=== PATIENT | male | born 1965 | race American Indian/Alaskan Native ===

== ENCOUNTER 2021-09-14 19:04 | Emergency (ER) | payer BC, OTHER ==
[2021-09-14] MEDS ORDERED: Sodium Chloride 0.9% 10 ML Syringe FLUSH PRN (19:13)
[2021-09-14] MEDS ORDERED: Sodium Chloride 0.9% 2.5 ML Syringe FLUSH PRN (19:13)
[2021-09-14] MEDS ORDERED: Lactated Ringers 1,000 ML IV ONE (19:14)
[2021-09-14] MEDS ORDERED: Folic Acid 1 MG Tab PO ONE (19:14)
[2021-09-14] MEDS ORDERED: Thiamine 100 MG Tab PO ONE (19:14)
[2021-09-14 19:57] LABS: CARBON DIOXIDE,CO2 24.5 mmol/L (21.0-32.0); POTASSIUM,K 3.1 mmol/L (3.5-5.1)
[2021-09-14 20:12] LABS: CORONAVIRUS COVID-19 NAA NEGATIVE (NEGATIVE); INFLUENZA A NAA NEGATIVE (NEGATIVE); INFLUENZA B NAA NEGATIVE (NEGATIVE)
[2021-09-14] MEDS ORDERED: Iopamidol 755 MG/ML 500 ML Multipack Bottle IVPUSH ONE (21:10)
[2021-09-14] MEDS ORDERED: Ketorolac 30 MG/ML SDV IVPUSH ONE (21:46)
== END 2021-09-14 23:37 | disposition home or self-care (01) ==
LOC: MW.ED 19:04
DX: R07.89 Other chest pain (principal); F10.10 Alcohol abuse, uncomplicated; E87.6 Hypokalemia; Z20.822 Contact with and (suspected) exposure to COVID-19
CPT/HCPCS: 0240U; 36415; 71045; 71275; 80053; 80307; 83690; 83735; 84484; 85025; 85379; 93005; 96361; 96374; 99285; A9270; J1885; J3490; J7120; Q9967; 93010; 99284

== ENCOUNTER 2021-09-23 13:45 | Emergency (ER) | payer BC, OTHER ==
[2021-09-23 15:59] LABS: ACETAMINOPHEN <2.0 ug/mL; BLOOD UREA NITROGEN,BUN 3 mg/dL (7.0-18.0); CARBON DIOXIDE,CO2 23.3 mmol/L (21.0-32.0); CHLORIDE,CL 101 mmol/L (98-107); GLUCOSE RANDOM 125 mg/dL (74-106); POTASSIUM,K 3.5 mmol/L (3.5-5.1); SODIUM,NA 136 mmol/L (136-148)
[2021-09-23 16:00] LABS: ESTIMATED GFR 110 mL/min (>60)
== END 2021-09-23 16:04 | disposition left against medical advice (07) ==
LOC: MW.ED 13:45
DX: F10.10 Alcohol abuse, uncomplicated (principal); I10 Essential (primary) hypertension; Z79.899 Other long term (current) drug therapy; Z20.822 Contact with and (suspected) exposure to COVID-19
CPT/HCPCS: 36415; 80053; 80143; 80179; 80305-QW; 80307; 81001; 83735; 84443; 85025; 93005; 93010; 99282; 99284; U0002

== ENCOUNTER 2023-01-26 10:02 | Emergency (ER) | payer OTHER ==
[2023-01-26] MEDS ORDERED: Dextrose 10% in Water 500 ML ONE (10:05)
[2023-01-26] MEDS ORDERED: Sodium Chloride 0.9% 1,000 ML IV ONE ×2 (10:08→10:28)
[2023-01-26] MEDS ORDERED: Sodium Chloride 0.9% 2.5 ML Syringe FLUSH PRN (10:08)
[2023-01-26] MEDS ORDERED: Ondansetron 4 MG/2 ML SDV IVPUSH ONE ×2 (10:08→12:46)
[2023-01-26] MEDS ORDERED: 50% Dextrose in Water 50 ML Syringe IVPUSH ONE (10:08)
[2023-01-26] MEDS ORDERED: Sodium Chloride 0.9% 10 ML Syringe FLUSH PRN (10:08)
[2023-01-26] MEDS ORDERED: Pantoprazole 80 MG in Sodium Chloride 0.9% 10 ML IVPUSH ONE (10:13)
[2023-01-26] MEDS ORDERED: cefTRIAXone 2 GM in Sodium Chloride 0.9% 50 ML IV ONE (10:14)
[2023-01-26] MEDS ORDERED: Octreotide 500 MCG in Sodium Chloride 0.9% 495 ML IV SCH (10:15)
[2023-01-26] MEDS ORDERED: Dextrose 10% in Water 500 ML IV SCH (10:15)
[2023-01-26 10:20] LABS: BASE EXCESS VENOUS -10.8 (-2.0-3.0); PH,VENOUS 7.3 (7.31-7.41)
[2023-01-26 10:24] LABS: BASOPHILS ABSOLUTE AUTO 0.02 K/uL (0.00-0.20); BASOPHILS PERCENT AUTO 0.2 % (0.0-1.0); EOSINOPHILS ABSOLUTE AUTO 0.01 K/uL (0.00-0.45); EOSINOPHILS PERCENT AUTO 0.1 % (0.0-6.0); HEMATOCRIT 25.6 % (42.0-52.0); HEMOGLOBIN 8.9 g/dL (14.0-18.0); IMMATURE GRAN ABSOLUTE AUTO 0.24 K/uL (0.00-0.05); IMMATURE GRAN PERCENT AUTO 2.1 % (0.0-0.4); LYMPHOCYTES ABSOLUTE AUTO 0.51 K/uL (1.00-4.80); LYMPHOCYTES PERCENT AUTO 4.4 % (24.0-44.0); MEAN CORPUSCULAR HEMOGLOBIN 35.6 pg (28.0-32.0); MEAN CORPUSCULAR HGB CONC 34.8 g/dL (32.0-36.0); MEAN CORPUSCULAR VOLUME 102.4 fL (83.0-99.0); MEAN PLATELET VOLUME 9.8 fL (9.4-12.4); MONOCYTES ABSOLUTE AUTO 0.61 K/uL (0.00-0.80); MONOCYTES PERCENT AUTO 5.3 % (0.0-8.0); NEUTROPHILS ABSOLUTE AUTO 10.22 K/uL (1.80-7.70); NEUTROPHILS PERCENT AUTO 87.9 % (41.0-71.0); NRBC ABSOLUTE 0.15 K/uL (0.00-0.02); NRBC PERCENT 1.3 /100WBC (0.0-0.2); PLATELET COUNT,PLT 144 K/uL (150-400); WHITE BLOOD CELL COUNT,WBC 11.61 K/uL (3.9-11.3)
[2023-01-26] MEDS ORDERED: Sodium Chloride 0.9% 500 ML IV SCH (10:30)
[2023-01-26 10:40] LABS: INR 1.61 (0.86-1.11); PTT,PARTIAL THROMBOPLSTIN TIME 43.8 SEC (23.9-30.7)
[2023-01-26 10:46] LABS: A/G RATIO 0.4 (0.9-1.6); ACETAMINOPHEN <2.0 ug/mL; ALANINE AMINOTRANSFERASE,ALT 38 IU/L (14-63); ALBUMIN 1.6 g/dL (3.4-5.0); ALKALINE PHOSPHATASE 348 U/L (46-116); ASPARTATE AMNIOTRANSFERASE,AST 189 IU/L (15-37); BILIRUBIN TOTAL 13.3 mg/dL (0.2-1.0); BLOOD UREA NITROGEN,BUN 76 mg/dL (7.0-18.0); CALCIUM 8.5 mg/dL (8.5-10.1); CARBON DIOXIDE,CO2 14.4 mmol/L (21.0-32.0); CHLORIDE,CL 90 mmol/L (98-107); CREATININE 17.5 mg/dL (0.8-1.3); EST CRCL DRUG DOSING (CG) 5.17 mL/min; ESTIMATED GFR 3 mL/min (>60); ETHANOL BLOOD MEDICAL 72 mg/dL; GLUCOSE RANDOM 68 mg/dL (74-106); PHOSPHORUS 6.8 mg/dL (2.6-4.7); POTASSIUM,K 5.4 mmol/L (3.5-5.1); SODIUM,NA 129 mmol/L (136-148)
[2023-01-26] MEDS ORDERED: Sodium Bicarbonate 150 MEQ in Dextrose 5% in Water 1,000 ML IV ONE ×4 (10:56→11:15)
[2023-01-26] MEDS ORDERED: metroNIDAZOLE/Normal Saline 500 MG in Premix Bag 1 BAG IV STA (10:57)
[2023-01-26] MEDS ORDERED: Norepinephrine Bit/D5W Premix 250 ML IV SCH (11:15)
[2023-01-26] MEDS ORDERED: Lidocaine 1% 5 ML VIAL INJECT ONE (11:32)
[2023-01-26] MEDS ORDERED: Lidocaine 1% with EPINEPHrine 1:100,000 20 ML MDV INJECT ONE (11:32)
[2023-01-26] MEDS ORDERED: Norepinephrine Bit/D5W Premix 250 ML ONE (11:36)
[2023-01-26 12:17] LABS: BASE EXCESS VENOUS -11.3 (-2.0-3.0); HEMATOCRIT 23.5 % (42.0-52.0); HEMOGLOBIN 8.3 g/dL (14.0-18.0); PH,VENOUS 7.3 (7.31-7.41)
[2023-01-26 12:43] LABS: LACTIC ACID 4.5 mmol/L (0.4-2.0)
[2023-01-26 13:19] LABS: APPEARANCE,URINE CLOUDY; COLOR,URINE BROWN; GLUCOSE,URINE NEGATIVE (NEGATIVE); KETONES,URINE 15 mg/dL (NEGATIVE); LEUKOCYTE ESTERASE,URINE TRACE (NEGATIVE); NITRITE,URINE NEGATIVE (NEGATIVE); OCCULT BLOOD,URINE LARGE (NEGATIVE); PH,URINE 5.5 (5.0-8.0); PROTEIN,URINE 100 mg/dL (NEGATIVE)
[2023-01-26 13:29] LABS: AMPHETAMINES SCREEN, URINE NEGATIVE (CUTOFF=500); BARBITURATE SCREEN,URINE NEGATIVE (CUTOFF=200); BENZODIAZEPINES SCREEN,URINE NEGATIVE (CUTOFF=150); BUPRENORPHINE SCREEN,URINE NEGATIVE (CUTOFF=10); METHADONE SCREEN, URINE NEGATIVE (CUTOFF=200); METHAMPHETAMINES SCREEN, URINE NEGATIVE (CUTOFF=500); OXYCODONE SCREEN,URINE NEGATIVE (CUT0FF=100); PCP SCREEN,URINE NEGATIVE (CUTOFF=25); PROPOXYPHENE SCREEN,URINE NEGATIVE (CUTOFF=300); THC SCREEN,URINE 20 NG/ML NEGATIVE (CUTOFF=50)
[2023-01-26 13:39] LABS: BILIRUBIN,URINE LARGE (NEGATIVE)
[2023-01-26 13:40] LABS: AMORPHOUS SEDIMENT,URINE MANY (NEGATIVE); BACTERIA,URINE FEW (NEGATIVE); EPITHELIAL CELLS,URINE FEW (NONE-FEW); MUCUS,URINE MANY (NONE-MOD)
== END 2023-01-26 14:05 ==
LOC: MW.ED 10:02
DX: A41.9 Sepsis, unspecified organism (principal); K72.90 Hepatic failure, unspecified without coma; N17.9 Acute kidney failure, unspecified; R18.8 Other ascites; E80.6 Other disorders of bilirubin metabolism; I10 Essential (primary) hypertension
CPT/HCPCS: 36415; 36556; 71045; 80048; 80076; 80143; 80305; 80307; 81001; 82009; 82140; 82803; 82947; 83605; 83735; 83880; 84100; 84484; 85014; 85018; 85025; 85610; 85730; 86850; 86900; 86901; 86920; 87040; 87077; 87154; 87186; 93005; 96365; 96366; 96367; 96375; 96376; 99291; C9113; J0696; J2354; J2405; J3490; J7030; J7040; J7060; 93010